=== PATIENT | female | born 1995 | race Caucasian/White ===

== ENCOUNTER 2023-04-14 21:58 | Inpatient (IN) | payer MEDICAID ==
[~2023-04-14] VITALS: Ht 167.6 cm; Wt 99.5 kg
[~2023-04-14 21:58] MED LIST: FLUO20CA30 PO; FOLI-130 PO; MULT-1238 PO; THIAMINE HCL100 MG PO
[2023-04-15] MEDS ORDERED: DiphenhydrAMINE HCL 50 MG/ML VIAL IM ONE (00:45)
[2023-04-15] MEDS ORDERED: LORazepam 2 MG/ML VIAL IM ONE (00:45)
[2023-04-15] MEDS ORDERED: HALOPERIDOL LACTATE 5 MG/ML VIAL IM ONE (00:45)
[2023-04-15 02:46] LABS: BASOPHILS % (AUTO) 0.7 % (0.0-2.0); EOSINOPHILS % (AUTO) 0.8 % (1.0-6.0); HEMATOCRIT 38.5 % (36-46); HEMOGLOBIN 13.2 g/dL (12.0-16.0); LYMPHOCYTES # (AUTO) 2.9 K/uL (1.0-4.8); LYMPHOCYTES % (AUTO) 27.2 % (22.0-44.0); MEAN CORPUSCULAR HEMOGLOBIN 29.5 pg (26.0-34.0); MEAN CORPUSCULAR HGB CONC 34.3 G/dL (31.0-37.0); MEAN CORPUSCULAR VOLUME 86 fL (80-100); MONOCYTES # (AUTO) 0.7 K/uL (0.1-1.0); MONOCYTES % (AUTO) 6.9 % (2.0-9.0); NEUTROPHILS # (AUTO) 6.9 K/uL (1.8-7.7); NEUTROPHILS % (AUTO) 64.4 % (40.0-70.0); PLATELET COUNT (AUTO) 342 K/uL (150-450); RED BLOOD CELL COUNT(AUTO) 4.48 MIL/uL (4.00-5.20); RED CELL DISTRIBUTION WIDTH 12.8 % (11.5-14.5); WHITE BLOOD COUNT (AUTO) 10.8 K/uL (4.5-11.0)
[2023-04-15 02:54] LABS: ANION GAP 9 mmol/L (8-16); CALCIUM, TOTAL 8.9 mg/dL (8.8-10.5); CARBON DIOXIDE 26 mmol/L (22-29); CHLORIDE 106 mmol/L (98-107); CREATININE 0.74 mg/dL (0.60-1.30); GLOMERULAR FILTR. RATE CALC > 60 mL/min (>60); GLUCOSE,RANDOM 95 mg/dL (70-110); POTASSIUM 3.3 mmol/L (3.5-5.1); SODIUM SERUM 141 mmol/L (136-145); UREA NITROGEN, BLOOD 14 mg/dL (7-18)
[2023-04-15 02:59] LABS: ALANINE AMINOTRANSFERASE 54 U/L (12-78); ALBUMIN 3.6 g/dL (3.4-5.0); ALKALINE PHOSPHATASE 49 U/L (46-116); ASPARTATE AMINOTRANSFERASE 32 U/L (15-37); BILIRUBIN,TOTAL 0.4 mg/dL (0.1-1.0); TOTAL PROTEIN, SERUM 6.9 g/dL (6.4-8.2)
[2023-04-15 03:02] LABS: ALCOHOL, BLOOD (SERUM) < 3 mg/dL (0-10)
[2023-04-15 05:22] LABS: COVID AG,FIA SOURCE NASAL SWAB
[2023-04-15 05:50] LABS: SARS-COV2 (COVID) ANTIGEN,FIA Negative (Negative)
[2023-04-15 17:44] VITALS: BP 130/81; PULSE 81; RESP 17; TEMP 98; O2SAT 98
[2023-04-15] MEDS ORDERED: POTASSIUM CHLORIDE 20 MEQ ER TABLET PO ONE (19:15)
[2023-04-16] MEDS ORDERED: HALOPERIDOL 5 MG TABLET PO PRN (03:30)
[2023-04-16] MEDS: LORazepam 2 MG TABLET PO PRN ×3 (03:33→23:43)
[2023-04-16 08:09] VITALS: BP 116/63; PULSE 73; RESP 18; TEMP 98; O2SAT 98
[2023-04-16] MEDS ORDERED: POTASSIUM CHLORIDE 20 MEQ ER TABLET PO ONE (14:30)
[2023-04-16] MEDS: ARIPiprazole 5 MG TABLET PO SCH (15:23)
[2023-04-16] MEDS: FLUoxetine HCL 20 MG CAPSULE PO SCH (15:24)
[2023-04-16 20:29] VITALS: BP 121/60; PULSE 72; RESP 17; TEMP 97.6; O2SAT 99
[2023-04-16] MEDS: ZOLPIDEM TARTRATE 10 MG TABLET PO PRN (23:43)
[2023-04-17] MEDS: FLUoxetine HCL 20 MG CAPSULE PO SCH (08:18)
[2023-04-17] MEDS: ARIPiprazole 5 MG TABLET PO SCH (08:18)
[2023-04-17 08:26] VITALS: BP 121/76; PULSE 89; RESP 18; TEMP 97.6; O2SAT 97
[2023-04-17] MEDS ORDERED: ONDANSETRON HCL 4 MG TABLET PO PRN (19:45)
[2023-04-17] MEDS ORDERED: MAGNESIUM HYDROXIDE SUSPENSION 30 ML UDCUP PO PRN (19:45)
[2023-04-17] MEDS ORDERED: ACETAMINOPHEN 325 MG TABLET PO PRN (19:45)
[2023-04-17] MEDS ORDERED: MAG HYDROX/AL HYDROX/SIMETH ES 30 ML SUSPENSION UDCUP PO PRN (19:45)
[2023-04-17] MEDS ORDERED: DOCUSATE SODIUM 100 MG CAPSULE PO PRN (19:45)
[2023-04-17] MEDS ORDERED: LOPERAMIDE HCL 2 MG CAPSULE PO PRN (19:45)
[2023-04-17] MEDS ORDERED: GuaiFENesin/D-METHORPHAN [SUGAR-FREE] 200-20MG/10 ML SYRUP UDCUP PO PRN (19:45)
[2023-04-17] MEDS ORDERED: PETROLATUM,WHITE 28 GM JELLY TP PRN (19:45)
[2023-04-17] MEDS ORDERED: NICOTINE 14 MG/24 HOUR PATCH TD PRN (19:45)
[2023-04-17] MEDS ORDERED: IBUPROFEN 400 MG TABLET PO PRN (19:45)
[2023-04-17] MEDS ORDERED: ALBUTEROL SULFATE HFA 90 MCG/PUFF 8 GM INHALER IH PRN (19:45)
[2023-04-17] MEDS ORDERED: CloNIDine HCL 0.1 MG TABLET PO PRN (19:45)
[2023-04-17 20:03] VITALS: BP 138/89; PULSE 99; RESP 18; TEMP 97.8; O2SAT 97
[2023-04-17] MEDS: ZOLPIDEM TARTRATE 10 MG TABLET PO PRN (21:12)
[2023-04-18] MEDS: LORazepam 2 MG TABLET PO PRN ×2 (01:30→21:10)
[2023-04-18] MEDS ORDERED: POTASSIUM CHLORIDE 20 MEQ ER TABLET PO ONE (08:15)
[2023-04-18] MEDS: FLUoxetine HCL 20 MG CAPSULE PO SCH (08:21)
[2023-04-18] MEDS: FOLIC ACID 1 MG TABLET PO SCH (08:21)
[2023-04-18] MEDS: ARIPiprazole 5 MG TABLET PO SCH (08:21)
[2023-04-18] MEDS: MULTIVITAMINS, THERAPEUTIC TABLET PO SCH (08:21)
[2023-04-18 09:59] VITALS: BP 114/74; PULSE 96; RESP 18; TEMP 97.6; O2SAT 96
[2023-04-18 20:51] VITALS: BP 139/99; PULSE 100; RESP 18; TEMP 97.5; O2SAT 98
[2023-04-18] MEDS: ZOLPIDEM TARTRATE 10 MG TABLET PO PRN (21:10)
[2023-04-19 08:03] LABS: HEMOGLOBIN A1C 5.2 % (3.8-5.6)
[2023-04-19 08:15] LABS: CHOL/HDL RATIO 4.6 (3.9-5.7); MAGNESIUM 2.3 mg/dL (1.80-2.40); POTASSIUM 3.5 mmol/L (3.5-5.1); THYROID STIMULATING HORMONE 0.96 uIU/mL (0.36-3.74)
[2023-04-19 08:18] VITALS: BP 128/78; PULSE 93; RESP 16; TEMP 98.2; O2SAT 100
[2023-04-19] MEDS: FLUoxetine HCL 20 MG CAPSULE PO SCH (08:37)
[2023-04-19] MEDS: MULTIVITAMINS, THERAPEUTIC TABLET PO SCH (08:37)
[2023-04-19] MEDS: ARIPiprazole 5 MG TABLET PO SCH (08:37)
[2023-04-19] MEDS: FOLIC ACID 1 MG TABLET PO SCH (08:37)
[2023-04-19] MEDS ORDERED: ARIP5TAB37 PO (11:18)
[2023-04-19] MEDS ORDERED: FLUO20CA36 PO (11:18)
== END 2023-04-19 13:48 | disposition home or self-care (01) | DRG 751 ==
LOC: EMS 22:00 → B3A 04-15 14:35
PROVIDERS: ADMIT Psychiatry & Neurology Psychiatry; ATTEND Psychiatry & Neurology Psychiatry
DX: F33.2 Major depressive disorder, recurrent severe without psychotic features (principal); R45.851 Suicidal ideations; Z91.148 Patient's other noncompliance with medication regimen for other reason; E66.9 Obesity, unspecified; Z20.822 Contact with and (suspected) exposure to COVID-19; G47.00 Insomnia, unspecified; E87.6 Hypokalemia; F41.9 Anxiety disorder, unspecified; Z79.899 Other long term (current) drug therapy; Z68.35 Body mass index [BMI] 35.0-35.9, adult
CPT/HCPCS: 80053; 80061; 83036; 83735; 84132; 84443; 85025; 99291; G0480; J1200; J1630; J2060